=== PATIENT | female | born 1945 | race African-American/Black ===

== ENCOUNTER 2019-04-18 20:47 | Inpatient (IN) | payer OTHER, BC ==
[~2019-04-18] VITALS: Ht 162.6 cm; Wt 77.6 kg
[2019-04-18 20:58] VITALS: Ht 162.6 cm; Wt 77.6 kg
[2019-04-18 21:52] LABS: BASOPHIL % 0.3 % (0-2); PLATELET COUNT 185 x10^3mcL (130-400); RED CELL DISTRIBUTION WIDTH 14.7 % (11.5-14.5)
[2019-04-18 22:03] LABS: CALCIUM 9.5 mg/dL (8.5-10.1); CARBON DIOXIDE 27.1 mmol/L (21-32); CHLORIDE SERUM 107 mmol/L (98-107); CREATININE SERUM 1.3 mg/dL (0.6-1.0); GLUCOSE SERUM 125 mg/dL (74-106); POTASSIUM SERUM 4.3 mmol/L (3.5-5.1); SODIUM SERUM 144 mmol/L (136-145)
[2019-04-18 22:09] LABS: ALBUMIN 3.9 g/dL (3.4-5.0); ALKALINE PHOSPHATASE 76 U/L (46-116); ALT/SGPT 15 U/L (14-59); AST/SGOT 13 U/L (15-37); TOTAL PROTEIN, SERUM 7.1 g/dL (6.4-8.2)
[2019-04-18] MEDS ORDERED: ASPIR 8181 MG PO (22:37)
[2019-04-18] MEDS ORDERED: CORE25 (22:38)
[2019-04-18] MEDS ORDERED: LOSARTAN POTASS25 M1 (22:38)
[2019-04-18] MEDS ORDERED: CARVEDILOL6.25 M1 PO (23:06)
[2019-04-18] MEDS ORDERED: ATORVASTATIN CA40 M1 PO (23:07)
[2019-04-18] MEDS ORDERED: LOSARTAN POTASS50 M1 PO (23:07)
[2019-04-18] MEDS ORDERED: CLOPIDOGREL75 M1 PO (23:08)
[2019-04-18 23:52] LABS: CHOLESTEROL/HDL RATIO 2.6; MAGNESIUM 1.8 mg/dL (1.8-2.4); PHOSPHOROUS 3.4 mg/dL (2.5-4.9)
[2019-04-19 00:02] LABS: FREE T4 1.18 ng/dL (0.76-1.46); FREE THYROXINE INDEX 2.8 ug/dL (1.4-4.5); T4(THYROXINE) 8.2 ug/dL (4.7-13.3)
[2019-04-19 00:23] LABS: T3 TOTAL 1.24 ng/mL
[2019-04-19 00:27] VITALS: BP 128/61
[2019-04-19 05:29] VITALS: BP 97/50
[2019-04-19 06:18] LABS: BASOPHIL % 0.2 % (0-2); PLATELET COUNT 145 x10^3mcL (130-400)
[2019-04-19 06:22] LABS: CALCIUM 8.9 mg/dL (8.5-10.1); CARBON DIOXIDE 24.8 mmol/L (21-32); CHLORIDE SERUM 107 mmol/L (98-107); CREATININE SERUM 1.1 mg/dL (0.6-1.0); GLUCOSE SERUM 103 mg/dL (74-106); MAGNESIUM 1.8 mg/dL (1.8-2.4); PHOSPHOROUS 3.6 mg/dL (2.5-4.9); POTASSIUM SERUM 4.4 mmol/L (3.5-5.1); SODIUM SERUM 143 mmol/L (136-145)
[2019-04-19 06:54] LABS: IRON 14 ug/dL (50-170); TOTAL IRON BINDING CAPACITY 230 ug/dL (250-450)
[2019-04-19 07:08] LABS: RED CELL DISTRIBUTION WIDTH 14.7 % (11.5-14.5)
[2019-04-19 09:38] VITALS: BP 127/59
[2019-04-19 13:33] VITALS: BP 112/41
[2019-04-19 17:04] VITALS: BP 104/44
[2019-04-19 19:01] LABS: microscopic required? NO
[2019-04-19 19:36] LABS: urine erythrocyte NEGATIVE (NEGATIVE)
[2019-04-19 19:45] LABS: AMPHETAMINE QUAL UR NONE DETECTED (See below)
[2019-04-19 21:04] VITALS: BP 134/57
[2019-04-20 05:16] VITALS: BP 123/49
[2019-04-20 06:07] LABS: CALCIUM 8.6 mg/dL (8.5-10.1); CARBON DIOXIDE 21.9 mmol/L (21-32); CHLORIDE SERUM 108 mmol/L (98-107); CREATININE SERUM 0.9 mg/dL (0.6-1.0); GLUCOSE SERUM 95 mg/dL (74-106); POTASSIUM SERUM 3.8 mmol/L (3.5-5.1); SODIUM SERUM 141 mmol/L (136-145)
[2019-04-20 06:13] LABS: BASOPHIL % 0.2 % (0-2)
[2019-04-20 06:45] LABS: PLATELET COUNT 126 x10^3mcL (130-400); RED CELL DISTRIBUTION WIDTH 14.6 % (11.5-14.5)
[2019-04-20 08:03] VITALS: BP 143/68
[2019-04-20 13:00] VITALS: BP 154/65
== END 2019-04-20 14:59 | disposition home or self-care (01) | DRG 302 ==
LOC: ED 20:47 → DU 23:07
PROVIDERS: Emergency Medicine; ADMIT Internal Medicine
DX: I25.10 Atherosclerotic heart disease of native coronary artery without angina pectoris (principal); N17.0 Acute kidney failure with tubular necrosis; R07.89 Other chest pain; E02 Subclinical iodine-deficiency hypothyroidism; D64.9 Anemia, unspecified; I10 Essential (primary) hypertension; I25.2 Old myocardial infarction; Z68.29 Body mass index [BMI] 29.0-29.9, adult; Z85.3 Personal history of malignant neoplasm of breast; Z95.5 Presence of coronary angioplasty implant and graft
CPT/HCPCS: 83880; 84439; A9500; G0378; J2270; J2405; J2785; J7030; Q0092